=== PATIENT | female | born 1950 | race Two or more races ===

== ENCOUNTER 2017-11-21 12:32 | Emergency (ER) | payer OTHER ==
[~2017-11-21] VITALS: Ht 160 cm; Wt 72.6 kg
[2017-11-21] MEDS ORDERED: LOSARTAN-HCTZ1 EAC1 (13:03)
[2017-11-21] MEDS ORDERED: SYNTHROID75 MCG (13:03)
== END 2017-11-21 16:59 | disposition home or self-care (01) ==
LOC: ER 12:32
DX: I10 Essential (primary) hypertension (principal)

== ENCOUNTER 2019-01-31 10:33 | Outpatient (CLI) | payer OTHER ==
[~2019-01-31 10:33] MED LIST: LOSARTAN-HCTZ1 EAC1; SYNTHROID75 MCG
== END 2019-01-31 10:35 | disposition home or self-care (01) ==
LOC: RAD 10:33
DX: S93.61 Sprain of tarsal ligament of foot (principal)

== ENCOUNTER 2019-06-13 13:08 | Outpatient (CLI) | payer OTHER | END 2019-06-13 13:50 | disposition home or self-care (01) | LOC: NUCLEAR 13:08 | DX: M81.0 Age-related osteoporosis without current pathological fracture (principal) ==

== ENCOUNTER 2020-01-15 10:11 | Outpatient (CLI) | payer OTHER | END 2020-01-15 10:31 | disposition home or self-care (01) | LOC: NUCLEAR 10:11 | PROVIDERS: ATTEND Family Medicine | DX: I87.2 Venous insufficiency (chronic) (peripheral) (principal) ==

== ENCOUNTER 2020-02-06 19:14 | Emergency (ER) | payer OTHER ==
[~2020-02-06] VITALS: Ht 160 cm; Wt 72.6 kg
[2020-02-06] MEDS ORDERED: TENORMIN50 M1 (19:32)
[2020-02-06] MEDS ORDERED: NORVASC5 MG (19:33)
[2020-02-06] MEDS ORDERED: LEVSIN/SL0.125 MG (19:36)
== END 2020-02-06 21:01 | disposition home or self-care (01) ==
LOC: ER 19:14
DX: R10.12 Left upper quadrant pain (principal)